=== PATIENT | male | born 1950 | race Caucasian/White ===

== ENCOUNTER 2016-05-18 15:23 | Outpatient (RCR) | payer MEDICARE, OTHER ==
[~2016-05-18 15:23] MED LIST: ASPIRIN E.C. 8181 MG PO; CRESTOR 10MG10 MG PO; GLUCOVANCE 2.51 TAB PO; IMDUR 30MG30 MG/TAB PO; LISINOPRIL5 MG PO; LOPRESSOR 225 MG/TAB PO; METOPROLOL25 MG PO; NITROSTAT0.4 MG/TAB SL; NORCO 325 MG-51 TAB PO; PLAVIX300 MG PO; PRINIVIL40 MG PO; SIMVASTATIN20 MG PO; [UNRECOGNIZED DRUG - OTHER]; [UNRECOGNIZED DRUG - REMARK] PO
== END 2016-05-22 | disposition home or self-care (01) ==
LOC: COL.CR
DX: Z48.812 Encounter for surgical aftercare following surgery on the circulatory system (principal); Z95.1 Presence of aortocoronary bypass graft; I25.10 Atherosclerotic heart disease of native coronary artery without angina pectoris

== ENCOUNTER 2016-06-12 09:39 | Emergency (ER) | payer MEDICARE, OTHER ==
[~2016-06-12] VITALS: Ht 165.1 cm; Wt 84.1 kg
[2016-06-12 09:47] VITALS: TEMP 97.8
[2016-06-12] MEDS ORDERED: GLUCOPHAGE500 MG/TAB PO (10:07)
[2016-06-12] MEDS ORDERED: PLAVIX 75MG TAB75 MG PO (10:18)
[2016-06-12 10:41] LABS: BASO % 0.4 % (0.0-2.0); EOS # 0.1 (0.0-0.7); EOS % 1.2 % (0-4.0); GRAN # 7.2 (1.4-6.5); GRAN % 75.8 % (42.2-75.2); HEMATOCRIT 44.5 % (42.0-52.0); HEMOGLOBIN 14.5 g/dl (13.5-18.0); LYMPH # 1.1 (1.2-3.4); MEAN CELL VOLUME 85 fl (80.0-100.0); MEAN CORPUSCULAR HEMOGLOBIN 28 pg (27.0-31.0); MEAN CORPUSCULAR HGB CONC 33 g/dl (33.0-37.0); MEAN PLATELET VOLUME 10.1 fl (7.4-10.4); MONO % 10.2 % (1.7-9.3); PLATELET COUNT 198 K/mm3 (130-400); RED BLOOD COUNT 5.21 M/mm3 (4.20-5.60); REDCELL DISTRIBUTION WIDTH-CV 14.4 % (11.5-14.5); WHITE BLOOD COUNT 9.5 K/mm3 (4.8-10.8)
[2016-06-12 10:52] LABS: ADJUSTED CALCIUM 9.1 mg/dL (8.4-10.2); ALBUMIN 3.5 gm/dL (3.5-5.0); BILIRUBIN,TOTAL 1.2 mg/dL (0.0-1.0); C-REACTIVE PROTEIN 6.8 mg/dL (0.0-0.9); CALCIUM 8.7 mg/dL (8.4-10.2); CREATININE, serum 0.8 mg/dL (0.66-1.25); POTASSIUM 3.8 mmol/L (3.4-5.0); TOTAL PROTEIN 6.6 gm/dL (6.4-8.2)
[2016-06-12 12:30] VITALS: BP 116/88; PULSE 68
== END 2016-06-12 12:30 | disposition home or self-care (01) ==
LOC: COL.ER 09:39
PROVIDERS: Emergency Medicine
DX: G56.02 Carpal tunnel syndrome, left upper limb (principal); E11.9 Type 2 diabetes mellitus without complications; I10 Essential (primary) hypertension; R26.9 Unspecified abnormalities of gait and mobility; Z86.73 Personal history of transient ischemic attack (TIA), and cerebral infarction without residual deficits; R29.898 Other symptoms and signs involving the musculoskeletal system

== ENCOUNTER → 2017-03-28 | Outpatient (CLI) | payer MEDICARE, OTHER ==
[~2017-03-28] MED LIST changes: +GLUCOPHAGE500 MG/TAB PO; +PLAVIX 75MG TAB75 MG PO
== END ==
LOC: COL.RAD 11:48
DX: N18.3 Chronic kidney disease, stage 3 (moderate) (principal); N28.1 Cyst of kidney, acquired

== ENCOUNTER 2020-04-28 07:26 | Emergency (ER) | payer MEDICARE, OTHER ==
[~2020-04-28] VITALS: Ht 165.1 cm; Wt 83.2 kg
[2020-04-28 07:55] LABS: BASO % 0.5 % (0.0-2.0); EOS # 0.3 (0.0-0.7); EOS % 4.1 % (0-4.0); GRAN # 3.9 (1.4-6.5); GRAN % 61.5 % (42.2-75.2); HEMATOCRIT 50.7 % (42.0-52.0); HEMOGLOBIN 16.6 g/dl (13.5-18.0); LYMPH # 1.7 (1.2-3.4); LYMPH % 25.9 % (20.0-51.0); MEAN CELL VOLUME 92 fl (80.0-100.0); MEAN CORPUSCULAR HEMOGLOBIN 30 pg (27.0-31.0); MEAN CORPUSCULAR HGB CONC 33 g/dl (33.0-37.0); MEAN PLATELET VOLUME 10.4 fl (7.4-10.4); MONO # 0.5 (0.1-0.6); MONO % 7.7 % (1.7-9.3); PLATELET COUNT 132 K/mm3 (130-400); RED BLOOD COUNT 5.54 M/mm3 (4.20-5.60); REDCELL DISTRIBUTION WIDTH-CV 13.4 % (11.5-14.5)
[2020-04-28 08:02] LABS: INR 1.1 (0.8-3.0); PROTHROMBIN TIME 12.2 SECONDS (9.7-12.8)
[2020-04-28 08:07] LABS: ALANINE AMINOTRANSFERASE 13 U/L (4-49); ALKALINE PHOSPHATASE 79 U/L (50-136); ANION GAP 7 mmol/L (7-16); AST,SGOT 23 U/L (15-37); BILIRUBIN,TOTAL 1.4 mg/dL (0.0-1.0); BLOOD UREA NITROGEN 18 mg/dL (9-20); CARBON DIOXIDE 28 mmol/L (22-30); CHLORIDE 106 mmol/L (98-107); GLUCOSE 153 mg/dL (74-106); SODIUM 140 mmol/L (137-145); TOTAL PROTEIN 6.9 gm/dL (6.4-8.2)
[2020-04-28 08:09] LABS: C-REACTIVE PROTEIN < 0.5 mg/dL (0.0-0.9)
[2020-04-28 11:33] VITALS: BP 145/105; PULSE 57; TEMP 97
== END 2020-04-28 11:33 | disposition home or self-care (01) ==
LOC: COL.ER 07:26
PROVIDERS: Family Medicine
DX: I10 Essential (primary) hypertension (principal); G45.9 Transient cerebral ischemic attack, unspecified; I25.10 Atherosclerotic heart disease of native coronary artery without angina pectoris; Z79.82 Long term (current) use of aspirin; Z79.84 Long term (current) use of oral hypoglycemic drugs; Z79.02 Long term (current) use of antithrombotics/antiplatelets
CPT/HCPCS: Q9967